=== PATIENT | male | born 1995 | race Caucasian/White ===

== ENCOUNTER 2019-08-06 16:22 | Emergency (ER) | payer OTHER ==
[2019-08-06] MEDS ORDERED: Cyclobenzaprine 10 MG Tab PO PRN (16:40)
--- NOTE | 2019-08-06 16:49 | EDM.PDOC ---
ED HPI GENERAL MEDICAL PROBLEM - General Chief Complaint: Upper Extremity Injury/Pain Stated Complaint: DISLOCATED LEFT SHOULDER Time Seen by Provider: 08/06/19 16:32 Source of Information: Reports: Patient, Other History Limitations: Reports: No Limitations - History of Present Illness INITIAL COMMENTS - FREE TEXT/NARRATIVE: Patient was working today and slipped and fell landing on his left shoulder. He has a acute onset of pain, he does have a step-off deformity noted. No numbness or tingling. He denies any head or back injury no neck pain or neck injury. Right-handed. No chest pain shortness of breath or breathing problems. Last ate at 2:00. No history of any heart or lung problems in the past. No nausea or vomiting. History of allergies to penicillin and amoxicillin. Onset: Sudden Onset Date: 08/06/19 Duration: Constant Location: Reports: Upper Extremity, Left Quality: Reports: Sharp, Stabbing Severity: Severe Improves with: Reports: None Worsens with: Reports: Movement Context: Reports: Activity Associated Symptoms: Denies: Fever/Chills, Headaches, Rash Left Shoulder Pain Score (Numeric/FACES): 8 - Related Data Allergies Allergy/AdvReac Type Severity Reaction Status Date / Time amoxicillin Allergy Hives Verified 08/06/19 16:33 Penicillins Allergy Hives Verified 08/06/19 16:33 Home Meds: Home Meds Cyclobenzaprine [Flexeril] 10 mg PO DAILY PRN #12 tab 08/06/19 [Rx] Hydrocodone/Acetaminophen [Chester 5-325 Tablet] 1 each PO Q6HR PRN #8 tablet 07/15 [Rx] Naproxen [Naprosyn] 500 mg PO BID PRN #20 tablet 08/06/19 [Rx] Past Medical History - Past Health History Medical/Surgical History: Denies Medical/Surgical History - Past Surgical History HEENT Surgical History: Reports: Oral Surgery Social & Family History - Family History Family Medical History: Noncontributory - Tobacco Use Smoking Status *Q: Never Smoker - Caffeine Use Caffeine Use: Reports: Coffee - Recreational Drug Use Recreational Drug Use: No Review of Systems - Review of Systems Review Of Systems: See Below Constitutional: Reports: No Symptoms Respiratory: Reports: No Symptoms Cardiovascular: Reports: No Symptoms GI/Abdominal: Reports: No Symptoms. Denies: Nausea, Vomiting Musculoskeletal: Reports: Shoulder Pain Skin: Reports: No Symptoms Neurological: Denies: Numbness, Paresthesia, Tingling Psychiatric: Reports: No Symptoms ED EXAM, GENERAL - Physical Exam Exam: See Below Exam Limited By: No Limitations General Appearance: Alert, WD/WN, Moderate Distress Throat/Mouth: Normal Oropharynx Head: Atraumatic, Normocephalic Neck: Normal Inspection, Full Range of Motion Respiratory/Chest: No Respiratory Distress, Lungs Clear, Normal Breath Sounds, No Accessory Muscle Use Cardiovascular: Normal Peripheral Pulses, Regular Rate, Rhythm Peripheral Pulses: 2+: Radial (L) GI/Abdominal: Normal Bowel Sounds Extremities: Normal Inspection, Arm Pain, Limited Range of Motion, Other (Left shoulder has step-off deformity, decreased range of motion with pain, no numbness, deltoid is intact, distal heel and all her pulses are normal, radial median and ulnar nerve are tested and intact with good motion and sensation no wrist pain or elbow pain. Scapular pain or chest wall pain) Neurological: Alert, Oriented Psychiatric: Normal Affect Skin Exam: Warm, Dry ED TRAUMA EXTREMITY PROCEDURES - Joint Reduction Site: Shoulder (L) Sedation: Other (Relaxation massage technique) Pre-Procedure NV Status: Normal Post-Procedure NV Status: Normal Technique: Other Number of Attempts: 1 Post-Reduction Imaging: Completely Reduced, No Fracture Seen Joint Reduction Complications: Yes Progress/Comments: Patient tolerated procedure well, post reduction film is normal no obvious Hill- Sachs deformity Course - Vital Signs Text/Narrative:: Slip and fall left shoulder looks like a dislocation rule out fracture. Patient will need closed reduction, will get x-rays first, treat with pain medications. Last Recorded V/S: Last Vital Signs Temp 98.6 F 08/06/19 16:29 Pulse 102 H 08/06/19 16:29 Resp 15 08/06/19 16:29 BP 182/116 H 08/06/19 16:29 Pulse Ox 97 08/06/19 16:29 - Orders/Labs/Meds Orders: Active Orders 24 hr Category Date Time Status Peripheral IV Care [RC] . DIRECTED Care 08/06/19 16:50 Active Shoulder 1V Lt [CR] Stat Exams 08/06/19 17:42 Taken Shoulder Comp Lt [CR] Stat Exams 08/06/19 16:50 Taken Sodium Chloride 0.9% [Saline Flush] Med 08/06/19 16:50 Active 10 ml FLUSH ASDIRECTED PRN DME for Discharge [COMM] Stat Oth 08/06/19 17:43 Ordered Peripheral IV Insertion Adult [OM.PC] Stat Oth 08/06/19 16:49 Ordered Medication Orders Sodium Chloride (Saline Flush) 10 ml FLUSH ASDIRECTED PRN PRN Reason: Keep Vein Open Last Admin: 08/06/19 17:10 Dose: 10 ml Meds: Medications Generic Name Dose Route Start Last Admin Trade Name Freq PRN Reason Stop Dose Admin Sodium Chloride 10 ml 08/06/19 16:50 08/06/19 17:10 Saline Flush FLUSH 10 ml ASDIRECTED PRN Administration Keep Vein Open Discontinued Medications Generic Name Dose Route Start Last Admin Trade Name Freq PRN Reason Stop Dose Admin Cyclobenzaprine HCl 10 mg 08/06/19 16:40 Flexeril PO BEDTIME PRN Spasms Hydromorphone HCl 1 mg 08/06/19 16:50 08/06/19 17:07 Dilaudid IVPUSH 08/06/19 16:51 1 mg ONETIME ONE Administration - Radiology Interpretation Free Text/Narrative:: Positive anterior shoulder dislocation, no signs of any obvious fracture. - Re-Assessments/Exams Free Text/Narrative Re-Assessment/Exam: 08/06/19 17:43 Patient was able to relax and was able to do a gentle technique with massage to reduce his shoulder without too much difficulty. Post reduction films obtained placed in a shoulder immobilizer. Will put him on some any inflammatory follow- up with orthopedist this next week, may need physical therapy. Avoid any heavy lifting bending or straining with his shoulder until follow-up after seeing orthopedist. Departure - Departure Time of Disposition: 18:08 Disposition: Home, Self-Care 01 Condition: Good Clinical Impression: Dislocation, shoulder, anterior - Discharge Information *PRESCRIPTION DRUG MONITORING PROGRAM REVIEWED*: Not Applicable *COPY OF PRESCRIPTION DRUG MONITORING REPORT IN PATIENT MARA: Not Applicable Prescriptions: Hydrocodone/Acetaminophen [Chester 5-325 Tablet] 1 each PO Q6HR PRN #8 tablet PRN Reason: Pain (Moderate 4-6) Cyclobenzaprine [Flexeril] 10 mg PO DAILY PRN #12 tab PRN Reason: Spasms Naproxen [Naprosyn] 500 mg PO BID PRN #20 tablet PRN Reason: Pain (Moderate 4-6) Instructions: Shoulder Dislocation, How to Use a Shoulder Immobilizer Referrals: PCP,None [Primary Care Provider] - Eric Boyd MD [Physician] - Forms: ED Department Discharge Additional Instructions: Call for follow-up appointment with the orthopedist for this week. Shoulder immobilizer. Avoid moving her arm away from your trunk, avoid any heavy lifting bending or straining. Naprosyn for pain, Norflex for muscle relaxant effect. Ice , rest. Return if any increasing pain, numbness, tingling, bluish discoloration, worse - My Orders Last 24 Hours: My Active Orders 08/06/19 16:49 Peripheral IV Insertion Adult [OM.PC] Stat 08/06/19 16:50 Peripheral IV Care [RC] . DIRECTED Shoulder Comp Lt [CR] Stat Sodium Chloride 0.9% [Saline Flush] 10 ml FLUSH ASDIRECTED PRN 08/06/19 17:42 Shoulder 1V Lt [CR] Stat 08/06/19 17:43 DME for Discharge [COMM] Stat - Assessment/Plan Last 24 Hours: My Active Orders 08/06/19 16:49 Peripheral IV Insertion Adult [OM.PC] Stat 08/06/19 16:50 Peripheral IV Care [RC] . DIRECTED Shoulder Comp Lt [CR] Stat Sodium Chloride 0.9% [Saline Flush] 10 ml FLUSH ASDIRECTED PRN 08/06/19 17:42 Shoulder 1V Lt [CR] Stat 08/06/19 17:43 DME for Discharge [COMM] Stat
[2019-08-06] MEDS ORDERED: Sodium Chloride 0.9% 10 ML Syringe FLUSH PRN (16:50)
[2019-08-06] MEDS ORDERED: HYDROmorphone 1 MG/ML Syringe IVPUSH ONE (16:50)
--- NOTE | 2019-08-07 06:51 | CR ---
Left shoulder: Single AP view of the left shoulder was obtained. Comparison: Previous left shoulder study performed on the same day (5:11 PM). Previous dislocation has been reduced. Glenohumeral alignment appears normal on current study. Acromioclavicular joint is within normal limits. No discrete fracture or other abnormality is identified. Impression: 1. Previous dislocation has been reduced. Diagnostic code #1
--- NOTE | 2019-08-07 07:10 | CR ---
Left shoulder: Three views of the left shoulder were obtained. Comparison: No prior left shoulder study. Anterior subcoracoid dislocation is seen. No discrete fracture or other bony abnormality is identified. Impression: 1. Anterior shoulder dislocation. Diagnostic code #5
== END 2019-08-06 18:30 | disposition home or self-care (01) ==
LOC: JD.ED 16:22
DX: S43.005A Unspecified dislocation of left shoulder joint, initial encounter (principal); Z88.1 Allergy status to other antibiotic agents; Z88.0 Allergy status to penicillin; Z79.899 Other long term (current) drug therapy; W01.0XXA Fall on same level from slipping, tripping and stumbling without subsequent striking against object, initial encounter
CPT/HCPCS: 23650; 73020; 73030; 96374; 99283; J1170

== ENCOUNTER 2020-11-02 19:44 | Emergency (ER) | payer OTHER ==
--- NOTE | 2020-11-02 20:13 | EDM.PDOC ---
ED HPI GENERAL MEDICAL PROBLEM - General Chief Complaint: Laceration Stated Complaint: SMASHED FINGER AT WORK RT HAND MIDDLE FINGER Time Seen by Provider: 11/02/20 19:53 Source of Information: Reports: Patient, RN Notes Reviewed History Limitations: Reports: No Limitations - History of Present Illness INITIAL COMMENTS - FREE TEXT/NARRATIVE: Patient is a 24-year-old male who presents to the ED for evaluation of a right middle finger injury. Patient notes he was at work at around 8 PM tonight, when he got his finger caught between 2 pieces of metal. He noted that he had pain in the distal fingertip directly after this, and there are open lacerations on his fingertip on the finger pad portion. He was still able to move his finger and pretty much all range of motion however there is quite a bit of swelling so it is making a little bit more difficult to do so. He is up-to-date on his tetanus vaccination. Patient denies any other sick-like symptoms, fever/chills, cough/shortness of breath, nausea/vomiting/diarrhea. Right Finger-Middle Pain Score (Numeric/FACES): 7 - Related Data Allergies Allergy/AdvReac Type Severity Reaction Status Date / Time amoxicillin Allergy Hives Verified 11/02/20 19:54 Penicillins Allergy Hives Verified 11/02/20 19:54 Home Meds: Home Meds . [No Known Home Meds] 11/02/20 [History] Past Medical History - Past Health History Medical/Surgical History: Denies Medical/Surgical History - Past Surgical History HEENT Surgical History: Reports: Oral Surgery Social & Family History - Family History Family Medical History: No Pertinent Family History - Tobacco Use Tobacco Use Status *Q: Never Tobacco User Second Hand Smoke Exposure: No - Caffeine Use Caffeine Use: Reports: None - Recreational Drug Use Recreational Drug Use: No ED ROS GENERAL - Review of Systems Review Of Systems: Comprehensive ROS is negative, except as noted in HPI. ED EXAM, SKIN/RASH Exam: See Below Exam Limited By: No Limitations General Appearance: Alert, WD/WN, No Apparent Distress Respiratory/Chest: No Respiratory Distress, Lungs Clear, Normal Breath Sounds, No Accessory Muscle Use, Chest Non-Tender Cardiovascular: Normal Peripheral Pulses, Regular Rate, Rhythm, No Edema Peripheral Pulses: 2+: Radial (L), Radial (R) Extremities: Normal Range of Motion, Normal Capillary Refill, Limited Range of Motion (of right distal finger tip d/t swelling) Neurological: Alert, Oriented, Normal Cognition, No Motor/Sensory Deficits Psychiatric: Normal Affect, Normal Mood Skin: Warm, Dry, Ecchymosis (Subungual hematoma noted to the right middle finger fingernail, there are 2 small linear open lacerations more about burst type injury on the lateral aspects of the distal third fingertip on the finger pad portion, measuring about half a centimeter each there is some protruding adipose tissue coming out of the wound.) ED SKIN PROCEDURES - Laceration/Wound Repair Right Lateral Distal Digit - 3rd (Middle) Appearance: Subcutaneous, Linear, Clean Distal NVT: Neuro & Vascular Intact, No Tendon Injury Skin Prep: Chlorhexidine (Hibiciens), Saline Exploration/Debridement/Repair: Wound Explored, In a Bloodless Field, Explored to Base, No Foreign Material Found Closed with: Dermabond Lac/Wound length In cm: 0.5 Sterile Dressing Applied: Nurse Tetanus Status Addressed: Yes Complications: No Course - Vital Signs Last Recorded V/S: Last Vital Signs Temp 97 F 11/02/20 19:52 Pulse 99 11/02/20 19:52 Resp 16 11/02/20 19:52 BP 180/122 H 11/02/20 19:52 Pulse Ox 97 11/02/20 19:52 - Orders/Labs/Meds Orders: Active Orders 24 hr Category Date Time Status Fingers Third Digit Rt F7 [CR] Stat Exams 11/02/20 19:55 Taken Departure - Departure Time of Disposition: 20:47 Disposition: Home, Self-Care 01 Condition: Good Clinical Impression: Crushing injury of finger of right hand - Discharge Information *PRESCRIPTION DRUG MONITORING PROGRAM REVIEWED*: No *COPY OF PRESCRIPTION DRUG MONITORING REPORT IN PATIENT MARA: No Instructions: Sutures, Nellie, or Adhesive Wound Closure, [id number] Referrals: PCP,None [Primary Care Provider] - Forms: ED Department Discharge, ED Return to Work/School Form Additional Instructions: You were seen in the ER today for your finger crush injury. X-rays were taken and demonstrate no acute fracture. Your wound was cleansed, and closed with Dermabond, once the swelling starts to go down in your hand, the wound should come back together even more, you will likely have some pressure underneath the fingernail where you have the large bruise under your fingernail. Please watch out for signs of infection, redness, swelling, drainage at the site of the lacerations. You may use 500 mg Tylenol or 600 mg ibuprofen every 6 hours as needed for further pain relief do not exceed 4000 mg Tylenol or 3200 mg ibuprofen in a 24- hour time span. Please return to the ER at any time if your symptoms change or worsen. Sepsis Event Note (ED) - Evaluation Sepsis Screening Result: No Definite Risk - Focused Exam Vital Signs: Vital Signs Temp Pulse Resp BP Pulse Ox 11/02/20 19:52 97 F 99 16 180/122 H 97 - My Orders Last 24 Hours: My Active Orders 11/02/20 19:55 Fingers Third Digit Rt F7 [CR] Stat - Assessment/Plan Last 24 Hours: My Active Orders 11/02/20 19:55 Fingers Third Digit Rt F7 [CR] Stat
--- NOTE | 2020-11-03 10:45 | CR ---
Right third finger: 3 view centered to the right third finger were obtained. Comparison: No prior finger or hand exam is available. Soft tissue injury appears to be present within the distal third finger. No acute fracture or other osseous abnormality is seen. No radiopaque foreign body is seen within the soft tissues. Impression: 1. Soft tissue injury. 2. No acute osseous abnormality is appreciated. Diagnostic code #2
== END 2020-11-02 21:05 | disposition home or self-care (01) ==
LOC: JD.ED 19:44
DX: S67.193A Crushing injury of left middle finger, initial encounter (principal); S61.213A Laceration without foreign body of left middle finger without damage to nail, initial encounter; Z88.0 Allergy status to penicillin; W23.0XXA Caught, crushed, jammed, or pinched between moving objects, initial encounter; Y92.89 Other specified places as the place of occurrence of the external cause; Y99.0 Civilian activity done for income or pay
CPT/HCPCS: 12001; 73140-26-F7; 73140-F7; 99282; 99283-25